=== PATIENT | female | born 2000 | race Caucasian/White ===

== ENCOUNTER 2022-05-10 08:59 | Day surgery (SDC) | payer OTHER, SELFPAY ==
--- NOTE | 2022-05-09 14:02 | P.CONAN_ITS ---
Documented by User: Millie Beckham NP 05/09/22 14:03 HPI - Anesthesia Eval Consult details Narrative: 21yo F for Upper Endoscopy [facility] Past Medical History Medical History (Updated 05/09/22 @ 13:08 by Farheen Raymundo, RAN) Anxiety Generalized headaches Social History Social History Patient Tobacco Use Status: Never used Tobacco Use of substances other than those prescribed or required for medical reasons: No Are you DNR?: No Advance Directives: No Advance Directives Information Provided: Yes Meds Allergies Allergy/AdvReac Type Severity Reaction Status Date / Time amoxicillin Allergy Unknown Verified 05/09/22 13:07 Home Medications Medication Instructions Recorded Confirmed Last Taken Type desogestrel-e.estradiol 0.15 1 tab PO DAILY 05/09/22 05/09/22 Unknown History mg-0.02 mg(21)/e.estrad 0.01 mg(5) tablet (Kariva (28)) fluoxetine 20 mg capsule 1 cap PO DAILY 05/09/22 05/09/22 Unknown History Exam Exam Date and Time: May 09, 2022 140 Assessment and Plan Assessment Anesthesia Assessment: Chart Reviewed Documented by User: Sam Hines MD 05/10/22 11:21 [facility] Past Medical History Medical History (Updated 05/09/22 @ 13:08 by Farheen Raymundo RN) Anxiety Generalized headaches Family History Family history of problems with anesthesia: No Surgical History History of Problems with Anesthesia: No Social History Social History Patient Tobacco Use Status: Never used Tobacco Use of substances other than those prescribed or required for medical reasons: No Are you DNR?: No Advance Directives: No Advance Directives Information Provided: Yes Meds Allergies Allergy/AdvReac Type Severity Reaction Status Date / Time amoxicillin Allergy Unknown Verified 05/09/22 13:07 Home Medications Medication Instructions Recorded Confirmed Last Taken Type desogestrel-e.estradiol 0.15 1 tab PO DAILY 05/09/22 05/09/22 Unknown History mg-0.02 mg(21)/e.estrad 0.01 mg(5) tablet (Kariva (28)) fluoxetine 20 mg capsule 1 cap PO DAILY 05/09/22 05/09/22 Unknown History Exam Airway Mallampati Class: I TM Dist: >3cm Neck ROM: Full Heart: ok Lungs: ok Assessment and Plan Assessment Anesthesia Assessment: Anesthesia Plan Discussed Final Anesthetic Review Family History of Problems with Anesthesia: No History of Problems with Anesthesia: No NPO: Yes ASA Class: I Final Preanesthetic Review: No Changes in Pt Med Stat, Meds/Allgs Chart Reviewed, Consent Obtained/Reviewed and Anes Risks/Benef Reviewed Patient Risk: Low Procedure Risk: Intermediate Anesthetic Plan Anesthetic Plan: MAC: and Agree w/ Assess. and Plan Disposition: Standard PACU
[2022-05-10 10:04] VITALS: BMI 21.2
[2022-05-10 10:10] VITALS: BP 125/95; PULSE 101; RESP 18; TEMP 36.7; O2SAT 99
[2022-05-10 10:13] LABS: UPreg QC Valid YES; Urine Pregnancy NEGATIVE (NEGATIVE)
[2022-05-10] MEDS: Lactated Ringers 1,000 ML 100 ML IVCONT (10:25)
--- NOTE | 2022-05-10 11:14 | MHC.SHP ---
Pre-Procedural Eval Section A Date of Service: 05/10/22 The patient is an INPATIENT: No Changes since office visit: No Cold of Flu in the past 2 weeks, No New Medical Problems, No Changes in Medication and No Patient answered all questions The History & Physical has been completed within 30 days and I have reviewed it.: Yes Section B Chief Complaint: Abnormal immunological findings in specimens from Allergies: Allergies Allergy/AdvReac Type Severity Reaction Status Date / Time amoxicillin Allergy Unknown Verified 05/09/22 13:07 Plan I have reviewed the history and physical and performed a pertinent physical examination on my patient. No changes have occurred unless specified. Time Spent With Patient Time: Total time managing care of this patient today ____ minutes.
[2022-05-10 11:46] VITALS: BP 109/71; PULSE 69; RESP 16; TEMP 36.2; O2SAT 98
[2022-05-10 11:58] VITALS: BP 116/81; PULSE 62; RESP 16; TEMP 36.2; O2SAT 97
[2022-05-10 12:13] VITALS: BP 132/81; PULSE 68; RESP 16; O2SAT 97
[2022-05-10 12:27] VITALS: BP 115/80; PULSE 74; RESP 16; TEMP 36.2; O2SAT 97
--- NOTE | 2022-05-10 22:05 | OP_ITS ---
SURGEON: Eb Baird MD INDICATIONS: Abnormal celiac antibody panel PREOPERATIVE DIAGNOSIS: POSTOPERATIVE DIAGNOSIS: PROCEDURE PERFORMED: Upper endoscopy with biopsy. ESTIMATED BLOOD LOSS: COMPLICATIONS: ANESTHESIA: Monitored anesthesia care. ASSISTANTS: SPECIMENS: DESCRIPTION OF PROCEDURE: A history and physical was performed. The procedure was performed on 05/10/2022. The risks and benefits of the procedure were explained to the patient. Informed consent was obtained. The patient was placed in a left lateral decubitus position. The Olympus video gastroscope was introduced into the esophagus, stomach, and duodenum. Examination was performed. The scope was removed. She tolerated the procedure well and was returned to the recovery area in stable condition. FINDINGS: Esophagus: The esophagus was normal. There was a slightly irregular EG junction. There was no evidence of esophagitis. Biopsies were obtained from the EG junction. Stomach: The stomach showed no evidence of masses or ulcers. Antral biopsies were obtained to rule out H pylori. Duodenum: The duodenum appeared normal. There were no changes of celiac disease. Biopsies were obtained from the second portion given the patient's history of an abnormal celiac antibody panel. IMPRESSION: Normal upper endoscopy. RECOMMENDATION: Follow up the biopsy results. MD FAUSTINO Daniel/ENZO / [id number]
== END 2022-05-10 13:09 | disposition home or self-care (01) ==
PROVIDERS: Nurse Practitioner; PCP Pediatrics; Visit Provider Internal Medicine Gastroenterology
PROC: 0DJ08ZZ Inspection of Upper Intestinal Tract, Via Natural or Artificial Opening Endoscopic (ICD-10-PCS; CPT 43235; principal; 2022-05-10 10:10)
DX: R89.4 Abnormal immunological findings in specimens from other organs, systems and tissues (principal); K59.04 Chronic idiopathic constipation; F41.1 Generalized anxiety disorder; R51.9 Headache, unspecified; Z79.899 Other long term (current) drug therapy; Z88.1 Allergy status to other antibiotic agents
CPT/HCPCS: 43239; 81025; 88305; 88342; J3010